=== PATIENT | male | born 1950 | race Caucasian/White ===

== ENCOUNTER → 2019-06-26 | Outpatient (CLI) | payer MEDICARE, OTHER, BC ==
[~2019-06-26] MED LIST: LISI10TA PO; SERT50TA2 PO
--- NOTE | 2019-06-26 12:34 | Diagnostic Imaging Report ---
EXAMINATION: CT Abdomen Pelvis without contrast. TECHNIQUE: Multiple contiguous axial images were obtained through the abdomen and pelvis without the use of intravenous contrast. All CT scans use one or more of the following dose optimizing techniques: automated exposure control, MA and/or KvP adjustment based on a patient size and exam type, or iterative reconstruction. HISTORY: PROSTATE CANCER COMPARISON: None available. FINDINGS: Limited views of the lower thorax are unremarkable. The liver is normal without focal lesion. Pneumobilia is likely related to a prior sphincterotomy. Gallbladder is normal. Pancreas is normal. Spleen is normal. Adrenal glands are normal. The kidneys are normal. There is no hydronephrosis. Urinary bladder is normal. There are no dilated loops of large or small bowel. No obstruction or inflammation. No free fluid or air. No abdominal or pelvic lymphadenopathy. Aorta is normal in caliber without aneurysm. There are no suspicious osseous lesions. IMPRESSION: 1. No metastatic disease in the abdomen or pelvis. Dictated by: Dictated on workstation # [id number]
--- NOTE | 2019-06-26 15:34 | Diagnostic Imaging Report ---
INDICATION: Newly diagnosed prostate cancer. TECHNIQUE: The patient was administered 26.7 mCi technetium 99m MDP. Anterior and posterior whole-body planar images are obtained. CORRELATION STUDY: None. FINDINGS: Likely mild degenerative change about the particularly midthoracic spine. The spine, ribs, sternum, and bilateral shoulder girdles as well as bony calvarium appearing unremarkable. The pelvis is unremarkable. There is slight asymmetric uptake suggested about the proximal and mid left femoral diaphysis. Also, question of very slight asymmetric uptake about the proximal left femur near the lesser trochanter. IMPRESSION: 1. Asymmetric uptake suggested about the proximal to mid left femoral shaft and perhaps the region in the lesser trochanter of the proximal femur. There is a history provided of old injury to the right leg. Possibility of metastatic disease is not excluded. Clinical correlation with symptoms is recommended. If further imaging evaluation is desired, initially, radiographs of the left femur would be recommended. Dictated by: Dictated on workstation # [id number]
== END ==
LOC: CARD 10:42
PROVIDERS: ATTEND Urology
DX: C61 Malignant neoplasm of prostate (principal)
CPT/HCPCS: 74176; 78306

== ENCOUNTER → 2019-07-23 | Outpatient (CLI) | payer MEDICARE, OTHER, BC ==
--- NOTE | 2019-07-23 18:45 | Diagnostic Imaging Report ---
EXAMINATION: Left femur, 2 views, 4 images. COMPARISON: CT abdomen and pelvis June 26, 2019. Nuclear medicine whole-body bone scan June 26, 2019. HISTORY: 69-year-old male, bone lesion of the left femur seen on bone scan. FINDINGS: There is a sclerotic lesion of the left ischium measuring approximately 2.1 cm in size. This is also seen on prior CT and has internal attenuation of 1095 Hounsfield units. This suggests the lesion may relate to a benign bone island although it is difficult to definitively diagnose. There are also probable bone islands of the left superior pubic ramus and left femoral head which are subcentimeter in size. There is a lucent lesion of the left anterior proximal femur in the region of the femoral head and neck junction which may relate to a synovial herniation. Left hip is not dislocated. There is no pronounced joint space loss, osteophyte formation, or subchondral cystic change associated with the left hip joint. There is very mild patellofemoral compartment osteoarthritis. There is no left knee joint effusion. There is degenerative type enthesopathy at the distal quadriceps tendon insertion. At the site of subtle radiotracer uptake at the level of the left proximal femoral diaphysis, there is subtle predominantly linear-appearing sclerosis in the bone. There is no identified fracture line or otherwise apparent lesion radiographically. IMPRESSION: 1. Sclerotic lesion involving the left ischium most likely relating to a benign bone island with additional small bone islands of the left superior pubic ramus and left femoral head. 2. Site of subtle radiotracer uptake on nuclear medicine bone scan appears to correlate with linear areas of sclerosis on radiographs. Radiographs are insensitive for detection of bone lesion. Further evaluation with CT of the left femur without contrast is recommended. Dictated by: Dictated on workstation # [id number]
== END ==
LOC: RAD 12:49
PROVIDERS: ATTEND Urology
DX: M89.9 Disorder of bone, unspecified (principal)
CPT/HCPCS: 73552

== ENCOUNTER → 2019-08-14 | Outpatient (CLI) | payer MEDICARE, OTHER, BC ==
[~2019-08-14] MED LIST changes: +HOLD METFORMIN - RECEIVED CONTRAST 20 ML VIAL IV SCH; +IOHEXOL 350 MG/ML 100 ML (OMNIPAQUE 350) VIAL IV ONE; +NS 100 ML (IVPB) BAG IV ONE
[2019-08-14 11:41] LABS: BUN/CREATININE RATIO 14; CREATININE SERUM 0.93 MG/DL (0.60-1.30); GFR ESTIMATED > 60
--- NOTE | 2019-08-14 14:14 | Diagnostic Imaging Report ---
Exam: CT left femur without and with intravenous contrast. Date: August 14, 2019. Indication: 69-year-old male, evaluation of bone lesion of the left femur. History of prostate cancer. Comparison: Nuclear medicine whole body bone scan June 26, 2019. Left femur radiographs July 23, 2019. Technique: Axial CT images of the left femur were obtained without and with intravenous contrast. Coronal and sagittal reformats were obtained and provided. All CT scans use one or more of the following dose optimizing techniques: automated exposure control, MA and/or KvP adjustment based on a patient size and exam type, or iterative reconstruction. . Findings: The curvilinear area of sclerosis on comparison radiographs correlates with the trabecula on CT. There is no bone lesion specifically at this location. There is a lucent lesion involving the posterior cortex of the proximal femoral diaphysis on axial image 274 which measures 6 x 5 mm in size. There is no periosteal reaction. There is no cortical breakthrough or associated soft tissue mass. There is a synovial herniation pit at the level of femoral head neck junction. There are benign bone islands in the left femoral head. There is a sclerotic lesion in the left ischium also likely reflecting a benign bone island measuring 1.7 x 1.5 cm in size. This has internal attenuation of 1300 Hounsfield units. There is no acute fracture. The lesser trochanter is without identified bone lesion. There is no additional identified bone lesion. There is no pronounced joint space loss of the left hip. There is very minimal osteophyte formation. There is no knee joint effusion. There is an ossification adjacent to the posterior aspect of the knee joint capsule measuring up to 5 mm in size which potentially could reflect an intra-articular body. There is a small slitlike Rosa's cyst. Impression: 1. Cortical lucency posteriorly at the level of the proximal femoral diaphysis measuring 6 x 5 mm in size which is nonspecific. A cortically based metastasis is possible although uncommon. This potentially could reflect prominent vessels traveling within the femoral cortex. If earlier comparison CT imaging is available, this may be useful for further assessment. 2. Sclerotic bone lesion in the left ischium as well as sclerotic foci in the left femoral head highly likely relating to benign bone islands. Dictated by: Dictated on workstation # [id number]
== END ==
LOC: RAD 11:11
PROVIDERS: ATTEND Urology
DX: C61 Malignant neoplasm of prostate (principal); M89.9 Disorder of bone, unspecified
CPT/HCPCS: 36415; 73702; 82565; 84520

== ENCOUNTER 2019-12-17 05:43 | Outpatient (RCR) | payer MEDICARE, OTHER, BC ==
[~2019-12-17] VITALS: Ht 177.8 cm; Wt 99.5 kg
[~2019-12-17 05:43] MED LIST changes: -HOLD METFORMIN - RECEIVED CONTRAST 20 ML VIAL IV SCH; -IOHEXOL 350 MG/ML 100 ML (OMNIPAQUE 350) VIAL IV ONE; -NS 100 ML (IVPB) BAG IV ONE
[2019-12-17 09:42] VITALS: BP 121/79
[2019-12-17 09:46] LABS: BASOPHILS % (AUTO) 0 % (0-10); EOSINOPHILS % (AUTO) 0 % (0-10); HEMATOCRIT 30 % (40-54); HEMOGLOBIN 8.9 G/DL (13.3-17.7); LYMPHOCYTES # (AUTO) 0.8 X 10^3 (1.0-4.0); LYMPHOCYTES % (AUTO) 12 % (12-44); MEAN CORPUSCULAR HEMOGLOBIN 21 PG (25-34); MEAN CORPUSCULAR HGB CONC 30 G/DL (32-36); MEAN CORPUSCULAR VOLUME 71 FL (80-99); MEAN PLATELET VOLUME 11.4 FL (7.4-10.4); MONOCYTES # (AUTO) 0.9 X 10^3 (0.0-1.0); MONOCYTES % (AUTO) 13 % (0-12); NEUTROPHILS # (AUTO) 5.2 X 10^3 (1.8-7.8); NEUTROPHILS % (AUTO) 74 % (42-75); PLATELET COUNT 142 10^3/uL (130-400); RED CELL DISTRIBUTION WIDTH 17.5 % (10.0-14.5); WHITE BLOOD COUNT 6.9 10^3/uL (4.3-11.0)
[2019-12-17 09:55] LABS: POTASSIUM 3.8 MMOL/L (3.6-5.0)
[2019-12-17 09:56] LABS: CALCIUM 8.6 MG/DL (8.5-10.1)
[2019-12-17 10:01] LABS: CREATININE SERUM 1.26 MG/DL (0.60-1.30)
[2019-12-17] MEDS ORDERED: AMLO5TAB9 PO (14:06)
[2019-12-17] MEDS ORDERED: ASPI-586 PO (14:06)
[2019-12-17] MEDS ORDERED: PANT40TA3 PO (14:06)
[2019-12-17] MEDS ORDERED: SERT50TA9 PO (14:06)
== END 2019-12-17 14:16 | disposition home or self-care (01) ==
LOC: PREOP 05:43
PROVIDERS: ATTEND Urology
DX: Z01.812 Encounter for preprocedural laboratory examination (principal); C61 Malignant neoplasm of prostate; Z20.828 Contact with and (suspected) exposure to other viral communicable diseases
CPT/HCPCS: 80048; 85025; 87081; 93005; U0002; 36415; 87635

== ENCOUNTER 2019-12-20 06:18 | Day surgery (SDC) | payer MEDICARE, OTHER, BC ==
[2019-12-20] VITALS (12 sets, daily range): BP systolic 102–130; BP diastolic 63–86
[~2019-12-20] VITALS: Ht 177.8 cm; Wt 99.5 kg
[~2019-12-20 06:18] MED LIST changes: +AMLO5TAB9 PO; +ASPI-586 PO; +PANT40TA3 PO; +SERT50TA9 PO
[2019-12-20] MEDS ORDERED: BUPIVACAINE 0.25% 30 ML (SENSORCAINE) VIAL ONE (06:21)
--- OUTSIDE RECORDS SUMMARY | 2019-12-20 06:22 | XMS REPORT | Continuity of Care Document ---
Demographics Preferred Language Unknown Marital Status Unknown Spiritism Affiliation Unknown Race Unknown Ethnic Group Unknown Author Organization Unknown Address Unknown Phone Unavailable Allergies Active Description Code Type Severity Reaction Onset Reported/Identified Relationship to Patient Clinical Status Yes PENICILLINS PENIC ILLINS SEVERE Yes PENICILLINS SEVERE DERMATOLOGICAL - LESLIE Yes PENICILLINS SEVERE SEVERE Yes Penicillins [id number] Drug Aller gy Unknown N/A 03/01/2013 Yes Penicillins [id number] Drug Aller gy Unknown Anaphylaxis 12/17/2019 Medications Medication Packaging Start Date St op Date Route Dosage Sig CLONIDINE TAB 0.1 MG (CATAPRES) MG 06/06/2016 06/06/2016 ONCE&1044 ONDANSETRON TAB 4 MG (ZOFRAN) MG 06/06/2016 06/06/2016 PRN ONCE METOPROLOL TAB 50 MG (LOPRESSOR) MG 06/06/2016 06/06/2016 ONCE&1153 SERTRALINE TAB 50 MG (ZOLOFT) MG 06/07/2016 06/13/2016 Daily&0900 THIAMINE VIAL 2CC INJ 100 MG /CC (VIT B1 2CC VIAL) MG 06/09/2016 06/09/2016 ONCE&1537 NORMAL SALINE 1000CC IV BAG INJ 0.9 % (NS 1000CC IV BAG) ml 05/12/2017 05/27/2017 CONTINUOUSEVERY 0 Hour THIAMINE TAB 100 MG (VITAMIN B1) MG 05/12/2017 05/12/2017 ONCE&1400 POTASSIUM CHLORIDE TAB 20 MEQ (K-DUR) MEQ 05/12/2017 05/15/2017 BID&0800,2000 SERTRALINE TAB 50 MG (ZOLOFT) Dose(s) 05/13/2017 05/19/2017 Daily&0900 ASA 81MG ENTERIC COATED TAB 81 MG (BABY ASPIRIN EC) MG 05/13/2017 05/19/2017 Daily&0900 AMLODIPINE TAB 5 MG (NORVASC) Dose(s) 05/13/2017 05/19/2017 Daily&0900 THIAMINE TAB 100 MG (VITAMIN B1) MG 05/13/2017 05/19/2017 Daily&0900 PANTOPAZOLE VIAL INJ 40 MG (PROTONIX IV) MG 05/13/2017 05/22/2017 Daily&0900 CLOPIDOGREL TAB 75 MG (PLAVIX) MG 05/15/2017 05/21/2017 Daily&0900 Problems Date Dx Coded Attending Type Code Diagnosis Diagnosed By 06/06/2016 Homer Nguyen 291.81 ALCOHOL WITHDRAWAL 06/06/2016 Homer Nguyen 401.0 MALIGNANT ESSENTIAL HYPERTENSION 06/06/2016 Homer Nguyen 784.59 OTHER SPEECH DISTURBANCE 06/06/2016 Homer Nguyen F10.239 ALCOHOL DEPENDENCE WITH WITHDRAWAL, UNSPECIFIED 06/06/2016 Homer Nguyen I10 ESSENTIAL (PRIMARY) HYPERTENSION 06/06/2016 Homer Nguyen R47.81 SLURRED SPEECH 06/08/2016 Fransisco Loyd 291.81 ALCOHOL WITHDRAWAL 06/08/2016 Fransisco Loyd 784.59 OTHER SPEECH DISTURBANCE 06/08/2016 Fransisco Loyd F10.239 ALCOHOL DEPENDENCE WITH WITHDRAWAL, UNSPECIFIED 06/08/2016 Fransisco Loyd R47.81 SLURRED SPEECH 06/09/2016 Fransisco Loyd 291.81 ALCOHOL WITHDRAWAL 06/09/2016 Fransisco Loyd 435.9 UNSPECIFIED TRANSIENT CEREBRAL ISCHEMIA 06/09/2016 Fransisco Loyd 784.59 OTHER SPEECH DISTURBANCE 06/09/2016 Fransisco Loyd F10.239 ALCOHOL DEPENDENCE WITH WITHDRAWAL, UNSPECIFIED 06/09/2016 Fransisco Loyd G45.9 TRANSIENT CEREBRAL ISCHEMIC ATTACK, UNSPECIFIED 06/09/2016 Fransisco Loyd R47.81 SLURRED SPEECH 05/12/2017 Fransisco Loyd 342.90 HEMIPLEGIA, UNSPECIFIED, AFFECTING UNSPECIFIED SIDE 05/12/2017 Fransisco Loyd G81.90 HEMIPLEGIA, UNSPECIFIED AFFECTING UNSPECIFIED SIDE 05/14/2017 Fransisco Loyd 276.8 05/14/2017 Fransisco Loyd 303.90 OTHER AND UNSPECIFIED ALCOHOL DEPENDENCE, UNSPECIFIED DRINKING BEHAVIOR 05/14/2017 Fransisco Loyd 342.90 HEMIPLEGIA, UNSPECIFIED, AFFECTING UNSPECIFIED SIDE 05/14/2017 Fransisco Loyd 401.0 MALIGNANT ESSENTIAL HYPERTENSION 05/14/2017 Fransisco Loyd 435.2 05/14/2017 Fransisco Loyd 530.81 ESOPHAGEAL REFLUX 05/14/2017 Fransisco Loyd 576.8 05/14/2017 Fransisco Loyd 729.89 05/14/2017 Fransisco Loyd 790.4 05/14/2017 Fransisco Loyd E87.6 HYPOKALEMIA 05/14/2017 Fransisco Loyd F10.20 ALCOHOL DEPENDENCE, UNCOMPLICATED 05/14/2017 Fransisco Loyd G45.8 OTH TRANSIENT CEREBRAL ISCHEMIC ATTACKS AND RELATED SYND 05/14/2017 Fransisco Loyd G81.90 HEMIPLEGIA, UNSPECIFIED AFFECTING UNSPECIFIED SIDE 05/14/2017 Fransisco Loyd I10 ESSENTIAL (PRIMARY) HYPERTENSION 05/14/2017 Fransisco Loyd K21.9 GASTRO- ESOPHAGEAL REFLUX DISEASE WITHOUT ESOPHAGITIS 05/14/2017 Fransisco Loyd K83.8 OTHER SPECIFIED DISEASES OF BILIARY TRACT 05/14/2017 Fransisco Loyd R29.898 OTH SYMPTOMS AND SIGNS INVOLVING THE MUSCULOSKELETAL SYSTEM 05/14/2017 Fransisco Loyd R74.0 NONSPEC ELEV OF LEVELS OF TRANSAMNS T LACTIC ACID DEHYDRGNSE 03/20/2018 Cesario Lora 842.00 SPRAIN OF UNSPECIFIED SITE OF WRIST 03/20/2018 Cesario Lora S63.501A UNSPECIFIED SPRAIN OF RIGHT WRIST, INITIAL ENCOUNTER 05/09/2018 Fransisco Loyd 401.9 UNSPECIFIED ESSENTIAL HYPERTENSION 05/09/2018 Fransisco Loyd I10 ESSENTIAL (PRIMARY) HYPERTENSION 05/09/2018 W 401.9 UNSP ECIFIED ESSENTIAL HYPERTENSION 05/09/2018 W I10 ESSENT IAL (PRIMARY) HYPERTENSION 05/09/2018 Fransisco Loyd 401.9 UNSPECIFIED ESSENTIAL HYPERTENSION 05/09/2018 Fransisco Loyd I10 ESSENTIAL (PRIMARY) HYPERTENSION 01/08/2019 Fransisco Loyd 401.9 UNSPECIFIED ESSENTIAL HYPERTENSION 01/08/2019 Fransisco Loyd I10 ESSENTIAL (PRIMARY) HYPERTENSION 01/08/2019 Fransisco Loyd 401.9 UNSPECIFIED ESSENTIAL HYPERTENSION 01/08/2019 Fransisco Loyd I10 ESSENTIAL (PRIMARY) HYPERTENSION 01/08/2019 Fransisco Loyd 401.9 UNSPECIFIED ESSENTIAL HYPERTENSION 01/08/2019 Fransisco Loyd I10 ESSENTIAL (PRIMARY) HYPERTENSION 06/27/2019 SANIYA JETER MD, Ot C61 MALIGNANT NEOPLASM OF PROSTATE 07/23/2019 CORONA MD, SANIYA A Ot C61 MALIGNANT NEOPLASM OF PROSTATE 07/24/2019 CORONA MAY, SANIYA Dominguez Ot C61 MALIGNANT NEOPLASM OF PROSTATE 07/26/2019 CORONA MAY, SANIYA Dominguez Ot C61 MALIGNANT NEOPLASM OF PROSTATE 07/26/2019 CORONA MAY, SANIYA Dominguez Ot M89.9 DISORDER OF BONE, UNSPECIFIED 08/10/2019 CORONA MAY, SANIYA Dominguez Ot C61 MALIGNANT NEOPLASM OF PROSTATE 08/10/2019 SANIYA JETER MD Ot M89.9 DISORDER OF BONE, UNSPECIFIED 08/14/2019 CORONA MAY, SANIYA Dominguez Ot M89.9 DISORDER OF BONE, UNSPECIFIED 08/16/2019 SERGIO KELLY MD Ot C6 1 MALIGNANT NEOPLASM OF PROSTATE 08/16/2019 SERGIO KELLY MD Ot M89.9 DISORDER OF BONE, UNSPECIFIED 08/22/2019 CORONA MAY, SANIYA Dominguez Ot M89.9 DISORDER OF BONE, UNSPECIFIED 09/05/2019 SERGIO KELLY MD Ot C6 1 MALIGNANT NEOPLASM OF PROSTATE 09/05/2019 SERGIO KELLY MD Ot M89.9 DISORDER OF BONE, UNSPECIFIED 09/13/2019 SERGIO KELLY MD P Ot C6 1 MALIGNANT NEOPLASM OF PROSTATE 09/13/2019 SERGIO KELLY MD Ot M89.9 DISORDER OF BONE, UNSPECIFIED 12/17/2019 CORONA MAY, SANIYA Dominguez Ot C61 MALIGNANT NEOPLASM OF PROSTATE 12/17/2019 CORONA MAY, SANIYA Dominguez Ot M89.9 DISORDER OF BONE, UNSPECIFIED 12/17/2019 SERGIO KELLY MD P Ot C6 1 MALIGNANT NEOPLASM OF PROSTATE 12/17/2019 SERGIO KELLY MD Ot M89.9 DISORDER OF BONE, UNSPECIFIED Procedures There is no data. Results Test Result Range Comprehensive Metabolic Panel - 06/06/16 10:45 Albumin 4.2 g/dL 3.6-5.1 ALP 84 U/L 35-130 ALT 85 U/L 6-45 Anion Gap 18 6-14 AST 110 U/L 2-40 BUN 4 mg/dL 5-25 Calcium 8.8 mg/dL 8.3-10.4 Chloride 100 mmol/L 95-114 CO2 18 mEq/L 22-33 Creat 0.77 mg/dL 0.50-1.50 eGFR 102 mL/min/1.73m2 >59 Globulin 3.4 g/dL 2.3-3.5 Glucose 113 mg/dL 70-110 Osmo 271 280-295 Potassium 3.9 mmol/L 3.5-5.3 Sodium 132 mmol/L 134-148 TBil 2.1 mg/dL 0.2-1.2 TP 7.6 g/dL 6.0-8.3 Ethanol - 06/06/16 10:45 Ethanol < 20 mg/dL Protime - 06/06/16 10:45 INR 1.1 1.0-4.0 Protime 13.3 Sec 9.9-12.8 Lipase - 06/06/16 10:45 Lipase 32 U/L 7-59 Thyroid Stimulating Hormone - 07/06/16 1 2:19 TSH 3.88 mIU/mL 0.32-5.00 Sodium, Urine Random - 07/08/16 10:38 Na-U 57.00 mmol/L 0.00-0.00 Osmolality, Urine - 07/08/16 10:38 OSMOLALITY, URINE 226 MOSMOL/KG Lipid Panel - 02/03/17 09:22 C/HDL 6.9 3.7-6.7 Cholesterol 180 mg/dL 100-240 HDL 26 mg/dL 30-85 LDL-Calculated 126 mg/dL 0-100 Trig 142 mg/dL 35-160 VLDL 28 mg/dL 0-42 EKG - 05/12/17 12:20 EKG Complete Urinalysis - 05/12/17 12:20 Cardiac Panel - 05/12/17 15:05 CK 28 U/L 26-174 CK-MB 0.6 ng/ml 0.0-9.2 Myoglobin 43.8 ng/ml 1.6-154.9 Troponin <0.020 ng/mL 0.0-0.4 Cardiac Panel - 05/12/17 18:07 CK 23 U/L 26-174 CK-MB 0.6 ng/ml 0.0-9.2 Myoglobin 38.1 ng/ml 1.6-154.9 Troponin <0.020 ng/mL 0.0-0.4 Cardiac Panel - 05/13/17 00:07 CK 33 U/L 26-174 CK-MB 0.5 ng/ml 0.0-9.2 Myoglobin 34.7 ng/ml 1.6-154.9 Troponin <0.020 ng/mL 0.0-0.4 Comprehensive Metabolic Panel - 05/13/17 06:57 Albumin 3.2 g/dL 3.6-5.1 ALP 111 U/L 35-130 ALT 44 U/L 6-45 Anion Gap 12 6-14 AST 46 U/L 2-40 BUN 7 mg/dL 5-25 Calcium 8.3 mg/dL 8.3-10.4 Chloride 111 mmol/L 95-114 CO2 20 mEq/L 22-33 Creat 0.73 mg/dL 0.50-1.50 eGFR 108 mL/min/1.73m2 >59 Globulin 3.6 g/dL 2.3-3.5 Glucose 105 mg/dL 70-110 Osmo 286 280-295 Potassium 3.7 mmol/L 3.5-5.3 Sodium 139 mmol/L 134-148 TBil 1.8 mg/dL 0.2-1.2 TP 6.8 g/dL 6.0-8.3 Comprehensive Metabolic Panel - 05/14/17 07:00 Albumin 3.1 g/dL 3.6-5.1 ALP 113 U/L 35-130 ALT 40 U/L 6-45 Anion Gap 12 14 AST 41 U/L 2-40 BUN 8 mg/dL 5-25 Calcium 8.0 mg/dL 8.3-10.4 Chloride 111 mmol/L 95-114 CO2 20 mEq/L 22-33 Creat 0.74 mg/dL 0.50-1.50 eGFR 106 mL/min/1.73m2 >59 Globulin 3.4 g/dL 2.3-3.5 Glucose 103 mg/dL 70-110 Osmo 286 280-295 Potassium 4.0 mmol/L 3.5-5.3 Sodium 139 mmol/L 134-148 TBil 1.5 mg/dL 0.2-1.2 TP 6.5 g/dL 6.0-8.3 Hepatic Panel - 08/08/17 15:32 Albumin 4.1 g/dL 3.6-5.1 ALP 123 U/L 35-130 ALT 33 U/L 6-45 AST 39 U/L 2-40 DBil 0.6 mg/dL 0.0-0.2 GGT 177 U/L 5-40 Globulin 3.4 g/dL 2.3-3.5 TBil 1.7 mg/dL 0.2-1.2 TP 7.5 g/dL 6.0-8.3 Hepatic Panel - 02/21/18 11:29 Albumin 4.6 g/dL 3.6-5.1 ALP 110 U/L 35-130 ALT 67 U/L 6-45 AST 62 U/L 2-40 DBil 0.9 mg/dL 0.0-0.2 GGT 291 U/L 5-40 Globulin 3.4 g/dL 2.3-3.5 TBil 2.7 mg/dL 0.2-1.2 TP 8.0 g/dL 6.0-8.3 Comprehensive Metabolic Panel - 03/29/18 16:13 Albumin 4.4 g/dL 3.6-5.1 ALP 112 U/L 35-130 ALT 57 U/L 6-45 Anion Gap 19 6-14 AST 55 U/L 2-40 BUN 8 mg/dL 5-25 Calcium 9.6 mg/dL 8.3-10.4 Chloride 102 mmol/L 95-114 CO2 20 mEq/L 22-33 Creat 0.89 mg/dL 0.50-1.50 eGFR 86 mL/min/1.73m2 >59 Globulin 3.7 g/dL 2.3-3.5 Glucose 83 mg/dL 70-110 Osmo 281 280-295 Potassium 4.3 mmol/L 3.5-5.3 Sodium 137 mmol/L 134-148 TBil 2.2 mg/dL 0.2-1.2 TP 8.1 g/dL 6.0-8.3 Lipid Panel - 05/09/18 09:25 C/HDL 4.9 3.7-6.7 Cholesterol 191 mg/dL 100-240 HDL 39 mg/dL 30-85 LDL-Calculated 130 mg/dL 0-100 Trig 110 mg/dL 35-160 VLDL 22 mg/dL 0-42 Comprehensive Metabolic Panel - 05/09/18 09:25 Albumin 4.6 g/dL 3.6-5.1 ALP 138 U/L 35-130 ALT 59 U/L 6-45 Anion Gap 15 6-14 AST 49 U/L 2-40 BUN 13 mg/dL 5-25 Calcium 9.4 mg/dL 8.3-10.4 Chloride 103 mmol/L 95-114 CO2 24 mEq/L 22-33 Creat 0.98 mg/dL 0.50-1.50 eGFR 76 mL/min/1.73m2 >59 Globulin 3.4 g/dL 2.3-3.5 Glucose 110 mg/dL 70-110 Osmo 284 280-295 Potassium 4.6 mmol/L 3.5-5.3 Sodium 137 mmol/L 134-148 TBil 1.4 mg/dL 0.2-1.2 TP 8.0 g/dL 6.0-8.3 Comprehensive Metabolic Panel - 01/08/19 09:15 Albumin 4.3 g/dL 3.6-5.1 ALP 118 U/L 35-130 ALT 28 U/L 6-45 Anion Gap 14 6-14 AST 34 U/L 2-40 BUN 11 mg/dL 5-25 Calcium 9.0 mg/dL 8.3-10.4 Chloride 107 mmol/L 95-114 CO2 22 mEq/L 22-33 Creat 1.05 mg/dL 0.50-1.50 eGFR 70 mL/min/1.73m2 >59 Globulin 2.9 g/dL 2.3-3.5 Glucose 118 mg/dL 70-110 Osmo 288 280-295 Potassium 4.3 mmol/L 3.5-5.3 Sodium 139 mmol/L 134-148 TBil 1.3 mg/dL 0.2-1.2 TP 7.2 g/dL 6.0-8.3 PSA TOTAL - 05/10/19 11:06 [id number] - 08/14/19 11:19 Serum or plasma urea nitrogen measurement (mass/volume ) 13 mg/dL 7-18 Serum or plasma creatinine measurement (mass/volume) 0.93 mg/dL 0.60-1.30 Serum or plasma urea nitrogen/creatinine mass ratio 14 NRG Serum or plasma creatinine measurement w ith calculation of estimated glomerular filtration rate > NRG Hepatic Panel - 11/19/19 10:34 Albumin 4.0 g/dL 3.6-5.1 ALP 86 U/L 35-130 ALT 45 U/L 6-45 AST 44 U/L 2-40 DBil 0.5 mg/dL 0.0-0.2 Globulin 2.9 g/dL 2.3-3.5 TBil 1.3 mg/dL 0.2-1.2 TP 6.9 g/dL 6.0-8.3 Complete blood count (CBC) with automate d white blood cell (WBC) differential - 12/17/19 09:30 Blood leukocytes automated count (number/volume) 6.9 10*3/uL 4.3-11.0 Blood erythrocytes automated count (number/volume) 4.26 10*6/uL 4.35-5.85 Venous blood hemoglobin measurement (mass/volume) 8.9 g/dL 13.3-17.7 Blood hematocrit (volume fraction) 30 % 40-54 Automated erythrocyte mean corpuscular volume 71 [ foz_us] 80-99 Automated erythrocyte mean corpuscular h emoglobin (mass per erythrocyte) 21 pg 25-34 Automated erythrocyte mean corpuscular h emoglobin concentration measurement (mass/volume) 30 g/dL 32-36 Automated erythrocyte distribution width ratio 17. 5 % 10.0- 14.5 Automated blood platelet count (count/volume) 142 10*3/uL 130-400 Automated blood platelet mean volume measurement 11.4 [foz_us] 7.4-10.4 Automated blood neutrophils/100 leukocytes 74 % 42-75 Automated blood lymphocytes/100 leukocytes 12 % 12-44 Blood monocytes/100 leukocytes 13 % 0-12 Automated blood eosinophils/100 leukocytes 0 % 0-10 Automated blood basophils/100 leukocytes 0 % 0-10 Blood neutrophils automated count (number/volume) 5.2 10*3 1.8-7.8 Blood lymphocytes automated count (number/volume) 0.8 10*3 1.0-4.0 Blood monocytes automated count (number/volume) 0. 9 10*3 0.0-1.0 Automated eosinophil count 0.0 10*3/uL 0 .0-0.3 Automated blood basophil count (count/volume) 0.0 10*3/uL 0.0-0.1 Whole blood basic metabolic panel - 11/28 09:30 Serum or plasma sodium measurement (moles/volume) 136 mmol/L 135-145 Serum or plasma potassium measurement (moles/volume) 3.8 mmol/L 3.6-5.0 Serum or plasma chloride measurement (moles/volume) 105 mmol/L 98-107 Carbon dioxide 16 mmol/L 21-32 Serum or plasma anion gap determination (moles/volume) 15 mmol/L 5-14 Serum or plasma glucose measurement (mass/volume) 112 mg/dL 70-105 Serum or plasma calcium measurement (mass/volume) 8.6 mg/dL 8.5-10.1 Methicillin resistant Staphylococcus aur eus (MRSA) screening culture - 12/17/19 09:30 Methicillin resistant Staphylococcus aureus (MRSA) scr eening culture NEG NRG Encounters ACCT No. Visit Date/Time Discharge Status Pt. Type Provider Facility Loc./Unit Complaint [id number] 05/12/2017 12:00:00 Document Registration [id number] 12/17/2019 05:43:00 14:16:00 DIS Outpatient SERGIO KELLY MD [facility] PREOP PROSTATE CANCER [id number] 08/14/2019 11:11:00 23:59:59 CLS Outpatient SERGIO KELLY MD [facility] RAD ABN XR [place] ON BON E SCAN [id number] 07/23/2019 12:49:00 23:59:59 CLS Outpatient SANIYA JETER MD [facility] RAD FEMERAL LESION ON BONE SCAN [id number] 06/26/2019 10:42:00 23:59:59 CLS Outpatient SANIYA JETER MD [facility] CARD PROSTATE CANCER [id number] 03/01/2013 09:12:00 23:59:59 CLS Outpatient [id number] 12/20/2019 06:18:[address] Outpatient SERGIO KELLY MD [facility] PROSTATE CANCER [id number] 11/19/2019 10:28:00 11/19/2019 23:59 :00 DIS Outpatient Fransisco Loyd [id number] 11/19/2019 08:37:00 11/19/2019 23:59 :00 DIS Outpatient Fransisco Loyd [id number] 05/28/2019 09:04:00 05/28/2019 23:59 :00 DIS Outpatient Fransisco Loyd [id number] 05/10/2019 12:36:00 05/10/2019 23:59 :00 DIS Outpatient Fransisco Loyd [id number] 05/10/2019 11:02:00 05/10/2019 23:59 :00 DIS Outpatient Fransisco Loyd [id number] 01/08/2019 09:03:00 01/08/2019 23:59: 00 DIS Outpatient Paoni, Fransisco [id number] 01/08/2019 08:38:00 01/08/2019 23:59: 00 DIS Outpatient Paoni, Fransisco [id number] 05/09/2018 09:21:00 05/09/2018 23:59: 00 DIS Outpatient PaFransisco sims [id number] 03/29/2018 15:57:00 03/29/2018 23:59: 00 DIS Outpatient UNLISTED, UNLISTED [id number] 03/29/2018 10:34:00 03/29/2018 10:34: 00 CAN Outpatient UNLISTED, UNLISTED [id number] 03/20/2018 18:12:00 03/20/2018 19:05: 00 DIS Outpatient Geon [facility] [id number] 02/21/2018 11:27:00 02/21/2018 23:59: 00 DIS Outpatient Laura, Filipe [id number] 02/07/2018 09:27:00 02/07/2018 23:59: 00 DIS Outpatient Laura, Filipe [id number] 08/08/2017 15:08:00 08/08/2017 23:59: 00 DIS Outpatient LauraFilipe [id number] 05/15/2017 11:18:00 05/15/2017 23:59: 00 DIS Outpatient Rach Fransisco [id number] 05/12/2017 12:00:00 05/14/2017 12:15: 00 DIS Outpatient Rach [facility] MED-SURG [id number] 02/03/2017 09:17:00 02/03/2017 23:59: 00 DIS Outpatient Rach Fransisco [id number] 07/12/2016 10:50:00 07/12/2016 23:59: 00 DIS Outpatient Palevi Fransisco [id number] 07/08/2016 10:37:00 07/08/2016 23:59: 00 DIS Outpatient PaFransisco sims [id number] 07/06/2016 12:16:00 07/06/2016 23:59: 00 DIS Outpatient PaFransisco sims [id number] 06/09/2016 00:00:00 06/09/2016 23:59: 00 DIS Outpatient Fransisco Loyd [id number] 06/09/2016 15:34:00 06/09/2016 16:10: 00 DIS Outpatient Fransisco Loyd [id number] 06/08/2016 14:06:00 06/08/2016 23:59: 00 DIS Outpatient Fransisco Loyd [id number] 06/07/2016 14:02:00 06/07/2016 23:59: 00 DIS Outpatient Fransisco Loyd [id number] 06/06/2016 10:29:00 06/06/2016 12:15: 00 DIS Outpatient Homer Nguyen [facility] [id number] 05/09/2018 08:47:00 Document Registration [id number] 06/06/2016 10:44:14 Document Registration
[2019-12-20] MEDS ORDERED: LEVOFLOXACIN 500 MG/100 ML IV 100 ML IV ONE (06:30)
[2019-12-20] MEDS: LACTATED RINGERS 1,000 ML IV PRN ×3 (06:32→18:04)
[2019-12-20] MEDS ORDERED: proPOfol 200 MG/20 ML (DIPRIVAN) VIAL IV ONE (06:40)
[2019-12-20] MEDS ORDERED: ROCURONIUM 10 MG/ML 5 ML SYRINGE IV ONE ×2 (06:40→08:11)
[2019-12-20] MEDS ORDERED: ONDANSETRON 4 MG/2 ML (SDV) Z0FRAN ONE (06:40)
[2019-12-20] MEDS ORDERED: LIDOCAINE PF 2% 5 ML (XYLOCAINE) VIAL ONE (06:40)
[2019-12-20] MEDS ORDERED: fentaNYL INJECTION 100 MCG/2 ML AMP ONE (06:41)
[2019-12-20] MEDS ORDERED: SEVOFLURANE (ULTANE) 15 ML INHAL SOLN ONE (06:41)
[2019-12-20] MEDS ORDERED: MIDAZOLAM 2 MG/2 ML (VERSED) VIAL ONE (06:41)
--- NOTE | 2019-12-20 06:58 | History & Physical-Surgical ---
HPO-Surgical History of Present Illness Chief Complaint: Prostate cancer Diagnosis/Surgical Indication: Prostate Cancer Procedure: Robotic prostatectomy, bilateral pelvic node dissection Date of Surgery: Dec 20, 2019 Weight (Pounds): 204 Allergies and Home Medications Allergies Coded Allergies: Penicillins (Verified Allergy, Unknown, Anaphylaxis, 12/17/19) Home Medications Amlodipine Besylate 5 Mg Tablet, 5 MG PO HS, (Reported) Aspirin 81 Mg Tablet.dr, 81 MG PO HS, (Reported) Pantoprazole Sodium 40 Mg Tablet.dr, 40 MG PO HS, (Reported) Sertraline HCl 50 Mg Tablet, 50 MG PO HS, (Reported) Patient Home Medication List Home Medication List Reviewed: Yes Past Utoitbn-Ojylfl-Qpbmsz Hx Patient Social History Alcohol Beverage of Choice: Beer Type Used: Smokeless Tobacco Recent Foreign Travel: No Contact w/other who traveled: No Recent Hopitalizations: No Seasonal Allergies Seasonal Allergies: Yes Surgeries Yes (R leg fx, left elbow) Respiratory No Cardiovascular Yes Neurological Yes Genitourinary Yes (prostate cancer) Gastrointestinal Yes (hx of hep C treated) Gastroesophageal Reflux Musculoskeletal Yes Arthritis Endocrine History of Endocrine Disorders: No HEENT History of HEENT Disorders: Yes Hearing Impairment: Hard of Hearing Cancer Yes Prostate Psychosocial History of Psychiatric Problem: No Integumentary History of Skin or Integumenta: No Blood Transfusions History of Blood Disorders: No Family Medical History Family Hx: Diabetes mellitus 19 MOTHER G8 BROTHER Hypertension 19 FATHER 19 MOTHER G8 BROTHER G8 SISTER Myocardial infarction 19 FATHER G8 BROTHER G8 SISTER Exam Vital Signs Capillary Refill : General Appearance: Alert, Oriented X3, Cooperative HEENT: Atraumatic, PERRLA, EOMI Respiratory: Normal Air Movement Cardiovascular: Regular Rate Abdominal: Normal Bowel Sounds, Soft, No Tenderness Extremities: No Clubbing, No Cyanosis, No Edema Skin: No Rashes Neuro: Normal Speech, Normal Tone, Sensation Intact Psych/Mental Status: Mental Status NL Assessment/Plan Assessment and Plan Prostate cancer Admission Diagnosis Prostate cancer Admission Status: Observation Reason for Inpatient Admission: Robotic prostatectomy SERGIO KELLY MD Dec 20, 2019 06:58
[2019-12-20] MEDS ORDERED: GLYCOPYRROLATE 0.2 MG/ML (ROBINUL) 2 ML VIAL ONE (08:50)
[2019-12-20] MEDS ORDERED: NEOSTIGMINE 3 MG/3 ML VIAL ONE (08:50)
[2019-12-20] MEDS ORDERED: HYDROmorphone 2 MG/ML VIAL (DILAUDID) ONE (09:00)
[2019-12-20] MEDS ORDERED: KETOROLAC 30 MG/ML VIAL ONE (10:08)
--- NOTE | 2019-12-20 10:18 | Progress Note-Post Operative ---
Post-Operative Progess Note Surgeon (s)/Director Of Public Safety (s) Surgeon SERGIO KELLY MD Director Of Public Safety: None Pre-Operative Diagnosis Prostate Cancer Post-Operative Diagnosis Prostate cancer Procedure & Operative Findings Date of Procedure 12/20/19 Procedure Performed/Findings Robotic assisted laparoscopic prostatectomy with bilateral pelvic bere dissection and bilateral wide dissection Anesthesia Type General Estimated Blood Loss Estimated blood loss (mL): 50mL Specimens/Packing Specimens Removed Prostate, right pelvic lymph nodes, left pelvic lymph nodes SERGIO KELLY MD Dec 20, 2019 10:18
[2019-12-20] MEDS ORDERED: HYDROmorphone 2 MG/ML VIAL (DILAUDID) IV ONE (10:45)
[2019-12-20] MEDS ORDERED: morphine INJ 10 MG/ML 1ML (SYR OR VIAL) IVP ONE (10:45)
[2019-12-20] MEDS: ONDANSETRON 4 MG/2 ML (SDV) Z0FRAN IVP PRN ×2 (11:01→12:05)
--- NOTE | 2019-12-20 11:30 | NUR ---
RECEIVED PT ON FLOOR. REPORT FROM HORSE STUD MANAGER. PT IS STABLE. SITES CLOSED WITH GLUE. URIN OUTPUT IS BLOODY.
--- NOTE | 2019-12-20 13:44 | OPERATIVE REPORT ---
DATE OF SERVICE: 12/20/2019 ATTENDING SURGEON: Dr. Jorge Pérez. MED AIDE SURGEON: None. PREOPERATIVE DIAGNOSIS: Adenocarcinoma of the prostate. POSTOPERATIVE DIAGNOSIS: Adenocarcinoma of the prostate. PROCEDURE: 1. Robotic-assisted laparoscopic radical prostatectomy. 2. Bilateral pelvic lymph node dissection. 3. Bilateral wide dissection. ANESTHESIA: General endotracheal anesthesia. SPECIMENS REMOVED: 1. Prostate. 2. Right pelvic lymph nodes. 3. Left pelvic lymph nodes. COMPLICATIONS: None. DRAINS: A 20-Djiboutian Toussaint catheter to dependent drainage with 50 mL in the balloon. ESTIMATED BLOOD LOSS: 50 mL. INDICATIONS FOR PROCEDURE: The patient is a very pleasant 69-year-old gentleman who was diagnosed with Gonzalez grade group I prostate cancer with a PSA of 10.5 in 04/2019. He was evaluated and ultimately elected to pursue a robotic-assisted laparoscopic radical prostatectomy. Due to his very poor erectile function which is nonresponsive to oral medications did elect a wide dissection as well. DESCRIPTION OF PROCEDURE: After reviewing risks and benefits of the surgical procedure and taken back to the operative suite, the patient was placed under general endotracheal anesthesia. A preoperative timeout was performed and appropriate perioperative antibiotics were instilled. His lower abdomen was clipped, prepped and draped in the usual sterile fashion. A Toussaint catheter was placed and we then proceeded to make a midline incision cephalad to the umbilicus. A Veress needle was inserted. Saline drop test was performed. The abdomen was insufflated to 15 mmHg. An 8 mm robotic port was then placed through this incision. The abdominal cavity was inspected. No significant intra-abdominal adhesions were noted. Two 8 mm robotic trocars were placed on the left side of the patient's abdomen at the level of the umbilicus, one on the right side as well as a 12 mm port in the right lower quadrant and a 5 mm port in the right upper quadrant. With these in position, the robot was docked after removing the patient in the steep Trendelenburg position. We began by making the Peritoneotomy overlying the external iliac arteries bilaterally. The plane between the medial umbilical ligament and the pelvic sidewall was developed. The lymphatic tissue overlying the external iliac artery, vein and obturator nerve was elevated off the sidewall and Hem-o-meng clips were used to control the distal ends of the lymphatic tissue. This was then resected and the left side was controlled using a clip to identify it for later during the extraction phase and the right and left pelvic lymph nodes were sent off to the side in the patient's abdomen. The bladder was then intraperitonealized by dividing the urachus and releasing from the anterior abdominal wall. Attachments to the pubic bone were released. The endopelvic fascia was opened sharply and the levator fibers were swept free. The puboprostatic ligaments were divided and the dorsal venous complex was identified. A 0 Vicryl suture on a CT1 needle was utilized to suture ligate the dorsal venous complex. The bladder neck was then incised and swept free, preserving significant bladder neck musculature and leading to a very tight bladder neck. Mucosa was transected sharply and the posterior bladder neck was swept free of the prostate as well. The seminal vesicles and vas deferens were identified posterior to the bladder and cleaned. The vas deferens were transected and the seminal vesicles were swept free of the Denonvilliers fascia. Once this was up, the prostate was elevated and Denonvilliers fascia was perforated. The perirectal space was entered and the prostate was released from the rectum to the level of the apex of the prostate. Hem-o-meng clips were then used bilaterally to control the prostatic pedicles to the level of the perirectal fascia. The neurovascular bundles were elevated off of the rectum and the prostate was freed down to the apex in its entirety. Catheter was then placed and the dorsal venous complex was divided sharply. The urethra was lengthened and also sharply divided. The remaining attachments of the neurovascular bundles were controlled using bipolar electrocautery and divided. The specimen was then placed in a specimen bag along with the previously identified lymphatic tissue. We performed a standard running anastomosis using a 2-0 Monocryl suture tied with vas deferens bolster. This was run posteriorly around anteriorly and tied. A new 20-Djiboutian Toussaint catheter was placed and the bladder was leak tested with 180 mL of sterile water with no identification of leakage of fluid. Once this was completed and the knot was tied, the needles were extracted, and the specimen bag was repositioned in the midline port. The robot was undocked. The abdomen was desufflated and the abdomen was then entered through the midline. Specimen was removed. The fascia was closed in the midline using 0 Vicryl sutures in interrupted fashion. Skin was then closed using a 4-0 Monocryl suture in a running subcuticular fashion as well. Dermabond was applied. The patient was extubated and taken to PACU in stable condition. Job ID: [id number] DocumentID: [id number] Dictated Date: 12/20/2019 10:36:43 Instructional Support Assistant Date: 12/20/2019 13:44:21 Dictated By: Jorge Pérez MD
[2019-12-20] MEDS ORDERED: fentaNYL INJECTION 100 MCG/2 ML AMP IVP PRN (15:00)
[2019-12-20] MEDS ORDERED: oxyCODONE/APAP 5/325MG (PERCOCET 5) TABLET PO PRN (15:00)
[2019-12-21 03:56] VITALS: BP 131/82
[2019-12-21 08:28] VITALS: BP 111/60
--- NOTE | 2019-12-21 09:09 | NUR ---
Called Dr. Fleming , pt's systolic bp was 209 manually, diasolic was 90. left message
--- NOTE | 2019-12-21 09:14 | Progress Note - Urology ---
Progress Note-Urology Progress Notes/Assess & Plan Progress/Assessment & Plan AFEBRILE, VSS. TOLERATES DIET WELL. PASSING FLATUS. URINE CLEAR, HOME WITH INSTRUCTIONS Final Diagnosis CA PROSTATE SANIYA JETER MD Dec 21, 2019 09:13
--- NOTE | 2019-12-21 09:17 | Discharge Inst-Urology ---
Discharge Inst-Urology Reconcile Patient Problems Problems Reviewed?: Yes Final Diagnosis CA PROSTATE Patient Instructions/Follow Up Plan/Assessment/Instructions Discharge with mendes and leg bag day time and large bag night time with instructions Patient to come to office next Wednesday 12/27 to DC Mendes Please make appointment to been seen in office in 2 weeks.Rest till then Keep bowels soft and moving. Showers, no bath Increase oral fluids for 48 hours and then as needed. Diet as tolerated. If questions or concerns contact your physician Or seek help at emergency department. SANIYA JETER MD Dec 21, 2019 09:17
--- NOTE | 2019-12-21 10:59 | NUR ---
SANTO Espinoza made initial visit. Pt anticipates going home today.
--- NOTE | 2019-12-21 15:49 | Anesthesia-General Post-Op ---
General Patient Condition Mental Status/LOC: Same as Preop Cardiovascular: Satisfactory Nausea/Vomiting: Absent Respiratory: Satisfactory Pain: Controlled Complications: Absent Post Op Complications Complications None Follow Up Care/Instructions Patient Instructions None needed. Anesthesia/Patient Condition Patient Condition Patient was seen this morning and he was doing well, no complaints, stable vital signs, no apparent adverse anesthesia problems. PREM LANDIN DO Dec 21, 2019 15:49
== END 2019-12-21 11:30 | disposition home or self-care (01) ==
LOC: SDC 06:18 → EDSTATUS 07:30 → 4TH 11:24 → SDC 12-21 11:30
PROVIDERS: ATTEND Urology
DX: C61 Malignant neoplasm of prostate (principal); I10 Essential (primary) hypertension; K21.9 Gastro-esophageal reflux disease without esophagitis; M19.90 Unspecified osteoarthritis, unspecified site; H91.90 Unspecified hearing loss, unspecified ear; F17.220 Nicotine dependence, chewing tobacco, uncomplicated; Z86.19 Personal history of other infectious and parasitic diseases; Z79.82 Long term (current) use of aspirin; Z88.0 Allergy status to penicillin; Z79.899 Other long term (current) drug therapy; Z86.73 Personal history of transient ischemic attack (TIA), and cerebral infarction without residual deficits; E66.9 Obesity, unspecified; Z68.31 Body mass index [BMI] 31.0-31.9, adult

== ENCOUNTER 2022-06-16 11:04 | Outpatient (RCR) | payer MEDICARE, OTHER, BC ==
[~2022-06-16 11:04] MED LIST changes: +AMLO-250 PO; -AMLO5TAB9 PO; -PANT40TA3 PO; +PANT40TA52 PO; +SERT-413 PO; -SERT50TA9 PO
[2022-06-16 12:05] LABS: BASOPHILS # (AUTO) 0.1 10^3/uL (0.0-0.1); BASOPHILS % (AUTO) 1 % (0-10); EOSINOPHILS % (AUTO) 1 % (0-10); HEMATOCRIT 31 % (40-54); HEMOGLOBIN 8.8 g/dL (13.3-17.7); LYMPHOCYTES % (AUTO) 25 % (12-44); MEAN CORPUSCULAR HEMOGLOBIN 21 pg (25-34); MEAN CORPUSCULAR HGB CONC 29 g/dL (32-36); MEAN CORPUSCULAR VOLUME 72 fL (80-99); MEAN PLATELET VOLUME 10.9 fL (9.0-12.2); MONOCYTES # (AUTO) 0.4 10^3/uL (0.0-1.0); MONOCYTES % (AUTO) 9 % (0-12); NEUTROPHILS # (AUTO) 2.5 10^3/uL (1.8-7.8); NEUTROPHILS % (AUTO) 64 % (42-75); PLATELET COUNT 163 10^3/uL (130-400); WHITE BLOOD COUNT 3.9 10^3/uL (4.3-11.0)
[2022-06-16 12:27] LABS: ALBUMIN 4.2 GM/DL (3.2-4.5); BILIRUBIN,TOTAL 1.9 MG/DL (0.1-1.0); CALCIUM 8.8 MG/DL (8.5-10.1); CREATININE SERUM 1.04 MG/DL (0.60-1.30); POTASSIUM 4.1 MMOL/L (3.6-5.0); TOTAL PROTEIN 7.4 GM/DL (6.4-8.2)
== END 2022-06-29 | disposition home or self-care (01) ==
LOC: ONC 11:04
PROVIDERS: ATTEND Internal Medicine Hematology & Oncology
DX: C61 Malignant neoplasm of prostate (principal)
CPT/HCPCS: 80053; 84153; 85025; G0463; 99204

== ENCOUNTER 2022-12-15 09:56 | Outpatient (RCR) | payer MEDICARE, OTHER, BC ==
[2022-12-15 10:16] LABS: LYMPHOCYTES # (AUTO) 0.7 10^3/uL (1.0-4.0)
[2022-12-15 10:18] LABS: BASOPHILS % (AUTO) 2 % (0-10); EOSINOPHILS % (AUTO) 1 % (0-10); HEMATOCRIT 35 % (40-54); LYMPHOCYTES % (AUTO) 28 % (12-44); MEAN CORPUSCULAR HEMOGLOBIN 26 pg (25-34); MEAN CORPUSCULAR HGB CONC 31 g/dL (32-36); MEAN CORPUSCULAR VOLUME 82 fL (80-99); MEAN PLATELET VOLUME 10.6 fL (9.0-12.2); MONOCYTES # (AUTO) 0.3 10^3/uL (0.0-1.0); MONOCYTES % (AUTO) 10 % (0-12); NEUTROPHILS # (AUTO) 1.5 10^3/uL (1.8-7.8); NEUTROPHILS % (AUTO) 59 % (42-75); WHITE BLOOD COUNT 2.6 10^3/uL (4.3-11.0)
[2022-12-15 10:19] LABS: PLATELET COUNT 133 10^3/uL (130-400)
[2022-12-15 10:38] LABS: ALBUMIN 4.2 GM/DL (3.2-4.5); CALCIUM 8.8 MG/DL (8.5-10.1); CREATININE SERUM 0.84 MG/DL (0.60-1.30); POTASSIUM 4.2 MMOL/L (3.6-5.0); TOTAL PROTEIN 7.2 GM/DL (6.4-8.2)
== END 2022-12-27 | disposition home or self-care (01) ==
LOC: ONC 09:56
PROVIDERS: ATTEND Internal Medicine Hematology & Oncology
DX: C61 Malignant neoplasm of prostate (principal); D50.9 Iron deficiency anemia, unspecified
CPT/HCPCS: 36415; 80053; 84153; 85025

== ENCOUNTER → 2023-01-19 | Outpatient (CLI) | payer BC, MEDICARE ==
[2023-01-19 13:57] LABS: ABSOLUTE RETIC # 78 10e9/uL (24-90); RETICULOCYTE % 1.78 % (0.50-2.40)
[2023-01-19 14:29] LABS: BAND NEUTROPHILS 0 %; BASOPHILS % (MANUAL) 0 %; EOSINOPHILS % (MANUAL) 5 %; LYMPHOCYTES % (MANUAL) 28 %; MONOCYTES % (MANUAL) 4 %; NEUTROPHILS % (MANUAL) 63 %
[2023-01-19 14:30] LABS: ANISOCYTOSIS SLIGHT
== END ==
LOC: LABNPT 13:32
PROVIDERS: ATTEND Family Medicine
DX: D69.6 Thrombocytopenia, unspecified (principal)
CPT/HCPCS: 85007; 85045; 85055

== ENCOUNTER 2023-03-09 09:50 | Outpatient (RCR) | payer MEDICARE, OTHER ==
[2023-03-09 10:15] LABS: BASOPHILS % (AUTO) 1 % (0-10); EOSINOPHILS % (AUTO) 1 % (0-10); HEMATOCRIT 34 % (40-54); HEMOGLOBIN 10.4 g/dL (13.3-17.7); LYMPHOCYTES # (AUTO) 0.7 10^3/uL (1.0-4.0); LYMPHOCYTES % (AUTO) 23 % (12-44); MEAN CORPUSCULAR HEMOGLOBIN 25 pg (25-34); MEAN CORPUSCULAR HGB CONC 31 g/dL (32-36); MEAN CORPUSCULAR VOLUME 80 fL (80-99); MONOCYTES # (AUTO) 0.2 10^3/uL (0.0-1.0); MONOCYTES % (AUTO) 8 % (0-12); NEUTROPHILS % (AUTO) 67 % (42-75); PLATELET COUNT 146 10^3/uL (130-400)
[2023-03-09 10:36] LABS: ALBUMIN 4.2 GM/DL (3.2-4.5); BILIRUBIN,TOTAL 1.3 MG/DL (0.1-1.0); CALCIUM 8.5 MG/DL (8.5-10.1); CREATININE SERUM 0.86 MG/DL (0.60-1.30); POTASSIUM 4.3 MMOL/L (3.6-5.0); TOTAL PROTEIN 7.1 GM/DL (6.4-8.2)
== END 2023-03-29 | disposition home or self-care (01) ==
LOC: ONC 09:50
PROVIDERS: ATTEND Internal Medicine Hematology & Oncology
DX: C61 Malignant neoplasm of prostate (principal); D50.9 Iron deficiency anemia, unspecified
CPT/HCPCS: 80053; 82728; 83540; 83550; 85025; G0463; 36415; 99214